=== PATIENT | female | born 1955 | race American Indian/Alaskan Native ===

== ENCOUNTER 2019-02-04 15:08 | Emergency (ER) | payer BC ==
--- NOTE | 2019-02-04 15:14 | EDM.PDOC ---
ED HPI GENERAL MEDICAL PROBLEM - General Stated Complaint: HEADACHE Time Seen by Provider: 02/04/19 15:11 Source of Information: Reports: Patient History Limitations: Reports: No Limitations - History of Present Illness INITIAL COMMENTS - FREE TEXT/NARRATIVE: HISTORY AND PHYSICAL: History of present illness: Patient is a 63-year-old female who presents to the emergency room with complaints of headache and nausea. She states approximately 2 hours prior to arrival she started to develop pain to her posterior scalp which now wraps around to the front and behind the left eye. She describes the pain around the left eye as pressure. Initially she told the triage nurse that this was a tingling sensation. After sitting down she states "well it's more like a pressure". She states "I just feel funny". Patient does have a history of hypertension, does take medication daily for this. She denies any weakness, slurred speech, or neurological deficits. She denies any recent head injury, trauma or falls. Patient denies any fever, chills, change in vision, syncope or near syncope. Denies any chest pain, back pain, shortness of breath or cough. Denies any abdominal pain, nausea, vomiting , diarrhea, constipation or dysuria. Has not noted any blood in urine or stool. Patient has been eating and drinking appropriately. Review of systems: As per history of present illness and below otherwise all systems reviewed and negative. Past medical history: As per history of present illness and as reviewed below otherwise noncontributory. Surgical history: As per history of present illness and as reviewed below otherwise noncontributory. Social history: See social history for further information Family history: As per history of present illness and as reviewed below otherwise noncontributory. Physical exam: General: Well-developed and well-nourished 63-year-old female. Alert and oriented. Nontoxic appearing and in no acute distress. HEENT: Atraumatic, normocephalic, pupils equal and reactive bilaterally, negative for conjunctival pallor or scleral icterus, mucous membranes moist, TMs normal bilaterally, throat clear, neck supple, nontender, trachea midline. No drooling or trismus noted. No meningeal signs. No hot potato voice noted. Lungs: Clear to auscultation, breath sounds equal bilaterally, chest nontender. Heart: S1S2, regular rate and rhythm without overt murmur Abdomen: Soft, nondistended, nontender. Skin: Intact, warm, dry. No lesions or rashes noted. Extremities: Atraumatic, moves all extremities per self without difficulty or deficits, negative for cords or calf pain. Neurovascular unremarkable. Neuro: Awake, alert, oriented. Cranial nerves II through XII unremarkable. Cerebellum unremarkable. Motor and sensory unremarkable throughout. Exam nonfocal. Notes: GCS 15, NIH 0. No deficits are noted. Repeat blood pressure is improved. She is agreeable to lab work and a head CT at this time. Lab work is unremarkable. Head CT shows no acute intracranial abnormalities. Patient states her symptoms have improved. Vital signs are stable. She does still have mild headache. I did offer her admission as we discussed migraine headache versus possibility of TIA. She refuses admission at this time. We discussed signs and symptoms that would prompt her to return to the emergency room. We discussed following up with primary care and/or neurology. Supportive care measures were reviewed and discussed. Voices understanding and is agreeable to plan of care. Denies any further questions or concerns at this time. Diagnostics: CBC, CMP, EKG, Head CT Therapeutics: IV fluids, Zofran, Toradol Prescription: None Impression: Migraine headache Plan: 1. Please take the remainder of the day to rest 2. Tylenol and/or ibuprofen as needed for pain management. 3. Follow-up with your primary care provider as we discussed. Return to the ED as needed and as discussed. Definitive disposition and diagnosis as appropriate pending reevaluation and review of above. Onset: Today Duration: Hour(s): Location: Reports: Head headache Pain Score (Numeric/FACES): 7 - Related Data Allergies Allergy/AdvReac Type Severity Reaction Status Date / Time blood pressure medications Allergy Cannot Uncoded 02/04/19 15:33 Remember Home Meds: Home Meds Blood Pressure Med 02/04/19 [History] Lisinopril 5 mg PO DAILY 02/04/19 [History] ED ROS GENERAL - Review of Systems Review Of Systems: ROS reveals no pertinent complaints other than HPI. - Physical Exam Exam: See Below (See dictation) Course - Vital Signs Last Recorded V/S: Last Vital Signs Temp 97.6 F 02/04/19 15:17 Pulse 87 02/04/19 15:17 Resp 18 02/04/19 15:17 BP 158/97 H 02/04/19 15:39 Pulse Ox 96 02/04/19 15:17 - Orders/Labs/Meds Orders: Active Orders 24 hr Category Date Time Status EKG Documentation Completion [RC] STAT Care 02/04/19 15:18 Active Head wo Cont [CT] Stat Exams 02/04/19 15:18 Taken Labs: Laboratory Tests 02/04/19 02/04/19 02/04/19 Range/Units 15:26 15:26 16:14 WBC 10.71 (4.0-11.0) K/uL RBC 4.88 (4.30-5.90) M/uL Hgb 16.0 (12.0-16.0) g/dL Hct 47.4 H (36.0-46.0) % MCV 97.1 (80.0-98.0) fL MCH 32.8 H (27.0-32.0) pg MCHC 33.8 (31.0-37.0) g/dL RDW Std Deviation 48.9 (28.0-62.0) fl RDW Coeff of Jonh 14 (11.0-15.0) % Plt Count 291 (150-400) K/uL MPV 10.20 (7.40-12.00) fL Neut % (Auto) 67.1 (48.0-80.0) % Lymph % (Auto) 23.5 (16.0-40.0) % Graves % (Auto) 7.1 (0.0-15.0) % Eos % (Auto) 1.7 (0.0-7.0) % Baso % (Auto) 0.6 (0.0-1.5) % Neut # (Auto) 7.2 H (1.4-5.7) K/uL Lymph # (Auto) 2.5 H (0.6-2.4) K/uL Graves # (Auto) 0.8 (0.0-0.8) K/uL Eos # (Auto) 0.2 (0.0-0.7) K/uL Baso # (Auto) 0.1 (0.0-0.1) K/uL Nucleated RBC % 0.0 /100WBC Nucleated RBCs # 0 K/uL Sodium 139 (136-145) mmol/L Potassium 4.0 (3.5-5.1) mmol/L Chloride 104 (98-107) mmol/L Carbon Dioxide 25.0 (21.0-32.0) mmol/L BUN 11 (7.0-18.0) mg/dL Creatinine 0.9 (0.6-1.0) mg/dL Est Cr Clr Drug Dosing 52.93 mL/min Estimated GFR (MDRD) > 60.0 ml/min Glucose 107 H (74-106) mg/dL Calcium 8.8 (8.5-10.1) mg/dL Total Bilirubin 0.3 (0.2-1.0) mg/dL AST 11 L (15-37) IU/L ALT 14 (14-63) IU/L Alkaline Phosphatase 109 (46-116) U/L Total Protein 8.6 H (6.4-8.2) g/dL Albumin 3.6 (3.4-5.0) g/dL Globulin 5.0 H (2.6-4.0) g/dL Albumin/Globulin Ratio 0.7 L (0.9-1.6) Urine Color YELLOW Urine Appearance CLEAR Urine pH 6.0 (5.0-8.0) Ur Specific [place] 1.010 (1.001-1.035) Urine Protein NEGATIVE (NEGATIVE) mg/dL Urine Glucose (UA) NEGATIVE (NEGATIVE) mg/dL Urine Ketones NEGATIVE (NEGATIVE) mg/dL Urine Occult Blood NEGATIVE (NEGATIVE) Urine Nitrite NEGATIVE (NEGATIVE) Urine Bilirubin NEGATIVE (NEGATIVE) Urine Urobilinogen 0.2 (<2.0) EU/dL Ur Leukocyte Esterase NEGATIVE (NEGATIVE) Meds: Medications Discontinued Medications Generic Name Dose Route Start Last Admin Trade Name Freq PRN Reason Stop Dose Admin Sodium Chloride 1,000 mls @ 999 mls/hr 02/04/19 15:18 02/04/19 15:32 Normal Saline IV 02/04/19 16:18 999 mls/hr STAT ONE Administration Ketorolac Tromethamine 30 mg 02/04/19 15:18 02/04/19 15:36 Toradol IVPUSH 02/04/19 15:19 30 mg ONETIME ONE Administration Ondansetron HCl 4 mg 02/04/19 15:18 02/04/19 15:34 Zofran IVPUSH 02/04/19 15:19 4 mg ONETIME ONE Administration Departure - Departure Time of Disposition: 17:09 Disposition: Home, Self-Care 01 Clinical Impression: Migraine headache without aura Qualifiers: Status migrainosus presence: without status migrainosus Intractability: not intractable Qualified Code(s): G43.009 - Migraine without aura, not intractable , without status migrainosus - Discharge Information Instructions: Migraine Headache, [id number] Referrals: PCP,None [Primary Care Provider] - Additional Instructions: The following information is given to patients seen in the emergency department who are being discharged to home. This information is to outline your options for follow-up care. We provide all patients seen in our emergency department with a follow-up referral. The need for follow-up, as well as the timing and circumstances, are variable depending upon the specifics of your emergency department visit. If you don't have a primary care physician on staff, we will provide you with a referral. We always advise you to contact your personal physician following an emergency department visit to inform them of the circumstance of the visit and for follow-up with them and/or the need for any referrals to a consulting specialist. The emergency department will also refer you to a specialist when appropriate. This referral assures that you have the opportunity for follow-up care with a specialist. All of these measure are taken in an effort to provide you with optimal care, which includes your follow-up. Under all circumstances we always encourage you to contact your private physician who remains a resource for coordinating your care. When calling for follow-up care, please make the office aware that this follow-up is from your recent emergency room visit. If for any reason you are refused follow-up, please contact the [facility] Emergency Department at and asked to speak to the emergency department charge nurse. [facility] Primary Care [address], [place] [address] [facility] Specialty Care - Neurology Professional Building [address] [place] [address], [address] [place] [address] 1. Please take the remainder of the day to rest 2. Tylenol and/or ibuprofen as needed for pain management. 3. Follow-up with your primary care provider or neurology as we discussed. Return to the ED as needed and as discussed. - My Orders Last 24 Hours: My Active Orders 02/04/19 15:18 EKG Documentation Completion [RC] STAT Head wo Cont [CT] Stat - Assessment/Plan Last 24 Hours: My Active Orders 02/04/19 15:18 EKG Documentation Completion [RC] STAT Head wo Cont [CT] Stat
[2019-02-04] MEDS ORDERED: Ketorolac 30 MG/ML SDV IVPUSH ONE (15:18)
[2019-02-04] MEDS ORDERED: Ondansetron 4 MG/2 ML SDV IVPUSH ONE (15:18)
[2019-02-04] MEDS ORDERED: Sodium Chloride 0.9% 1,000 ML IV ONE (15:18)
[2019-02-04 15:56] LABS: CHLORIDE,CL 104 mmol/L (98-107); SODIUM,NA 139 mmol/L (136-145)
--- NOTE | 2019-02-04 17:07 | CT ---
INDICATION: Headache. Pressure behind left eye. TECHNIQUE: Multiple axial images were obtained through the brain without contrast. Sagittal and coronal re-formatted images were obtained. COMPARISON: None. FINDINGS: The ventricles and sulci are within normal limits. There is no mass effect or midline shift. There is no intracranial hemorrhage. The lorenzana-white matter differentiation is unremarkable. There is no fracture identified on bone windows. IMPRESSION: No acute intracranial abnormality. Dictated by Owen Rob MD @ 02/04/2019 5:04:42 PM Please note that all CT scans at this facility use dose modulation, iterative reconstruction, and/or weight-based dosing when appropriate to reduce radiation dose to as low as reasonably achievable. Dictated by: Owen Rob MD @ 02/04/2019 17:06:17 (Electronically Signed)
[2019-02-04] MEDS ORDERED: cloNIDine 0.1 MG Tab PO ONE (17:35)
[2019-02-04] MEDS ORDERED: Lisinopril 5 MG Tab PO ONE (17:36)
== END 2019-02-04 18:16 | disposition home or self-care (01) ==
LOC: MW.ED 15:08
DX: G43.009 Migraine without aura, not intractable, without status migrainosus (principal); Z79.899 Other long term (current) drug therapy
CPT/HCPCS: 36415; 70450; 80053; 81003; 85025; 93005; 96361; 96374; 96375; 99284; A9270; J1885; J2405; J7040

== ENCOUNTER 2019-07-28 13:57 | Emergency (ER) | payer BC ==
--- NOTE | 2019-07-28 14:29 | EDM.PDOC ---
ED HPI GENERAL MEDICAL PROBLEM - General Chief Complaint: General Stated Complaint: LIGHT HEADED/PAIN IN LEGS Time Seen by Provider: 07/28/19 14:09 - History of Present Illness INITIAL COMMENTS - FREE TEXT/NARRATIVE: HISTORY AND PHYSICAL: History of present illness: Patient is 62-year-old female with history of hypertension and anxiety who presents with concern of generalized weakness she also has had a mild headache she states she was concerned about possible anxiety attack versus other more serious conditions she denies chest pain shortness breath nausea vomiting or other complaints. There's been no fever chills and her weakness has been somewhat generalized without any focal sensory or motor deficits Review of systems: As per history of present illness and below otherwise all systems reviewed and negative. Past medical history: As per history of present illness and as reviewed below otherwise noncontributory. Surgical history: As per history of present illness and as reviewed below otherwise noncontributory. Social history: No reported history of drug or alcohol abuse. Family history: As per history of present illness and as reviewed below otherwise noncontributory. Physical exam: HEENT: Atraumatic, normocephalic, pupils reactive, negative for conjunctival pallor or scleral icterus, mucous membranes moist, throat clear, neck supple, nontender, trachea midline. Lungs: Clear to auscultation, breath sounds equal bilaterally, chest nontender. Heart: S1S2, regular, negative for clicks, rubs, or JVD. Abdomen: Soft, nondistended, nontender. Negative for masses or hepatosplenomegaly. Negative for costovertebral tenderness. Pelvis: Stable nontender. Genitourinary: Deferred. Rectal: Deferred. Extremities: Atraumatic, negative for cords or calf pain. Neurovascular unremarkable. Neuro: Awake, alert, oriented. Cranial nerves II through XII unremarkable. Cerebellum unremarkable. Motor and sensory unremarkable throughout. Exam nonfocal. Diagnostics: CBC CMP troponin PT/INR chest x-ray EKG CT brain Therapeutics: None Impression: #1 generalized weakness #2 history of hypertension #3 history of anxiety number for medical screening exam Definitive disposition and diagnosis as appropriate pending reevaluation and review of above. Headache Pain Score (Numeric/FACES): 3 - Related Data Allergies Allergy/AdvReac Type Severity Reaction Status Date / Time blood pressure medications Allergy Cannot Uncoded 07/28/19 14:15 Remember Home Meds: Home Meds Lisinopril 40 mg PO DAILY 02/04/19 [History] Furosemide [Lasix] 20 mg PO DAILY 07/28/19 [History] Metoprolol Tartrate 25 mg PO DAILY 07/28/19 [History] Past Medical History Cardiovascular History: Reports: CAD, Hypertension Genitourinary History: Reports: None [employer] History: Reports: - Infectious Disease History Infectious Disease History: Reports: Chicken Pox, Mumps - Past Surgical History Cardiovascular Surgical History: Reports: None Female Surgical History: Reports: Hysterectomy Social & Family History - Family History Family Medical History: Noncontributory - Tobacco Use Smoking Status *Q: Current Every Day Smoker Years of Tobacco use: 40 Packs/Tins Daily: 1 - Caffeine Use Caffeine Use: Reports: Coffee - Recreational Drug Use Recreational Drug Use: No ED ROS GENERAL - Review of Systems Review Of Systems: Comprehensive ROS is negative, except as noted in HPI. ED EXAM, GENERAL - Physical Exam Exam: See Below (Dictation) Course - Vital Signs Text/Narrative:: Discussed diagnostics with patient ED course has been unremarkable on admission for observation patient declines requests follow-up with private medical doctor Last Recorded V/S: Last Vital Signs Temp 36.6 C 07/28/19 14:17 Pulse 75 07/28/19 14:17 Resp 18 07/28/19 14:17 BP 143/90 H 07/28/19 14:17 Pulse Ox 97 07/28/19 14:17 - Orders/Labs/Meds Orders: Active Orders 24 hr Category Date Time Status EKG Documentation Completion [RC] STAT Care 07/28/19 14:27 Active Labs: Laboratory Tests 07/28/19 07/28/19 07/28/19 Range/Units 14:44 14:44 14:44 WBC 10.63 (4.0-11.0) K/uL RBC 4.60 (4.30-5.90) M/uL Hgb 15.1 (12.0-16.0) g/dL Hct 44.3 (36.0-46.0) % MCV 96.3 (80.0-98.0) fL MCH 32.8 H (27.0-32.0) pg MCHC 34.1 (31.0-37.0) g/dL RDW Std Deviation 50.0 (28.0-62.0) fl RDW Coeff of John 14 (11.0-15.0) % Plt Count 272 (150-400) K/uL MPV 10.40 (7.40-12.00) fL Neut % (Auto) 69.3 (48.0-80.0) % Lymph % (Auto) 22.2 (16.0-40.0) % [place] % (Auto) 6.6 (0.0-15.0) % Eos % (Auto) 1.2 (0.0-7.0) % Baso % (Auto) 0.7 (0.0-1.5) % Neut # (Auto) 7.4 H (1.4-5.7) K/uL Lymph # (Auto) 2.4 (0.6-2.4) K/uL [place] # (Auto) 0.7 (0.0-0.8) K/uL Eos # (Auto) 0.1 (0.0-0.7) K/uL Baso # (Auto) 0.1 (0.0-0.1) K/uL Nucleated RBC % 0.0 /100WBC Nucleated RBCs # 0 K/uL INR 1.03 Sodium 139 (136-145) mmol/L Potassium 3.7 (3.5-5.1) mmol/L Chloride 105 (98-107) mmol/L Carbon Dioxide 26.7 (21.0-32.0) mmol/L BUN 10 (7.0-18.0) mg/dL Creatinine 0.9 (0.6-1.0) mg/dL Est Cr Clr Drug Dosing 52.93 mL/min Estimated GFR (MDRD) > 60.0 ml/min Glucose 103 (74-106) mg/dL Calcium 8.7 (8.5-10.1) mg/dL Total Bilirubin 0.3 (0.2-1.0) mg/dL AST 15 (15-37) IU/L ALT 16 (14-63) IU/L Alkaline Phosphatase 102 (46-116) U/L Troponin I < 0.050 (0.000-0.056) ng/mL Total Protein 8.2 (6.4-8.2) g/dL Albumin 3.3 L (3.4-5.0) g/dL Globulin 4.9 H (2.6-4.0) g/dL Albumin/Globulin Ratio 0.7 L (0.9-1.6) Urine Color Urine Appearance Urine pH (5.0-8.0) Ur Specific [place] (1.001-1.035) Urine Protein (NEGATIVE) mg/dL Urine Glucose (UA) (NEGATIVE) mg/dL Urine Ketones (NEGATIVE) mg/dL Urine Occult Blood (NEGATIVE) Urine Nitrite (NEGATIVE) Urine Bilirubin (NEGATIVE) Urine Urobilinogen (<2.0) EU/dL Ur Leukocyte Esterase (NEGATIVE) 07/28/19 Range/Units 15:20 WBC (4.0-11.0) K/uL RBC (4.30-5.90) M/uL Hgb (12.0-16.0) g/dL Hct (36.0-46.0) % MCV (80.0-98.0) fL MCH (27.0-32.0) pg MCHC (31.0-37.0) g/dL RDW Std Deviation (28.0-62.0) fl RDW Coeff of John (11.0-15.0) % Plt Count (150-400) K/uL MPV (7.40-12.00) fL Neut % (Auto) (48.0-80.0) % Lymph % (Auto) (16.0-40.0) % [place] % (Auto) (0.0-15.0) % Eos % (Auto) (0.0-7.0) % Baso % (Auto) (0.0-1.5) % Neut # (Auto) (1.4-5.7) K/uL Lymph # (Auto) (0.6-2.4) K/uL [place] # (Auto) (0.0-0.8) K/uL Eos # (Auto) (0.0-0.7) K/uL Baso # (Auto) (0.0-0.1) K/uL Nucleated RBC % /100WBC Nucleated RBCs # K/uL INR Sodium (136-145) mmol/L Potassium (3.5-5.1) mmol/L Chloride (98-107) mmol/L Carbon Dioxide (21.0-32.0) mmol/L BUN (7.0-18.0) mg/dL Creatinine (0.6-1.0) mg/dL Est Cr Clr Drug Dosing mL/min Estimated GFR (MDRD) ml/min Glucose (74-106) mg/dL Calcium (8.5-10.1) mg/dL Total Bilirubin (0.2-1.0) mg/dL AST (15-37) IU/L ALT (14-63) IU/L Alkaline Phosphatase (46-116) U/L Troponin I (0.000-0.056) ng/mL Total Protein (6.4-8.2) g/dL Albumin (3.4-5.0) g/dL Globulin (2.6-4.0) g/dL Albumin/Globulin Ratio (0.9-1.6) Urine Color YELLOW Urine Appearance CLEAR Urine pH 7.0 (5.0-8.0) Ur Specific [place] 1.010 (1.001-1.035) Urine Protein NEGATIVE (NEGATIVE) mg/dL Urine Glucose (UA) NEGATIVE (NEGATIVE) mg/dL Urine Ketones NEGATIVE (NEGATIVE) mg/dL Urine Occult Blood NEGATIVE (NEGATIVE) Urine Nitrite NEGATIVE (NEGATIVE) Urine Bilirubin NEGATIVE (NEGATIVE) Urine Urobilinogen 1.0 (<2.0) EU/dL Ur Leukocyte Esterase NEGATIVE (NEGATIVE) Departure - Departure Time of Disposition: 15:41 Disposition: Home, Self-Care 01 Condition: Good Clinical Impression: Encounter for medical screening examination, Generalized weakness, Anxiety - Discharge Information Referrals: Foster Waller [Primary Care Provider] - Forms: ED Department Discharge - My Orders Last 24 Hours: My Active Orders 07/28/19 14:27 EKG Documentation Completion [RC] STAT - Assessment/Plan Last 24 Hours: My Active Orders 07/28/19 14:27 EKG Documentation Completion [RC] STAT
--- NOTE | 2019-07-28 15:12 | CT ---
Head CT Technique: Multiple axial sections through the brain were obtained. Intravenous contrast was not utilized. Comparison: Prior head CT study of 02/04/19. Findings: Ventricles along with basal cisterns and sulci the convexities are mildly prominent. No abnormal parenchymal densities are seen. No evidence of intracranial hemorrhage. No midline shift or mass effect is seen. Mild mucosal thickening is noted within the right maxillary sinus. Mastoid sinuses are clear. No acute calvarial abnormality is appreciated. Impression: 1. Mucosal thickening within the right maxillary sinus. This is most likely chronic. 2. No acute intracranial abnormality is appreciated. Diagnostic code #2 MTDD
[2019-07-28 15:16] LABS: BLOOD UREA NITROGEN,BUN 10 mg/dL (7.0-18.0); CARBON DIOXIDE,CO2 26.7 mmol/L (21.0-32.0); CHLORIDE,CL 105 mmol/L (98-107); GLUCOSE RANDOM 103 mg/dL (74-106); POTASSIUM,K 3.7 mmol/L (3.5-5.1); SODIUM,NA 139 mmol/L (136-145)
--- NOTE | 2019-07-28 15:32 | CR ---
Chest: PA view of the chest was obtained. Comparison: No prior chest x-ray. Heart size and mediastinum are within normal limits. Lungs are clear with no acute parenchymal change. Bony structures are grossly intact. Impression: Nothing acute is seen on frontal chest x-ray. Diagnostic code #1 MTDD
== END 2019-07-28 15:56 | disposition home or self-care (01) ==
LOC: MW.ED 13:57
DX: Z13.89 Encounter for screening for other disorder (principal); R53.1 Weakness; F41.9 Anxiety disorder, unspecified; I25.10 Atherosclerotic heart disease of native coronary artery without angina pectoris; I10 Essential (primary) hypertension; F17.210 Nicotine dependence, cigarettes, uncomplicated; Z79.899 Other long term (current) drug therapy; Z88.8 Allergy status to other drugs, medicaments and biological substances
CPT/HCPCS: 36415; 70450; 70450-26; 71045; 71045-26; 80053; 81003; 84484; 85025; 85610; 93005; 99282; 99285-25

== ENCOUNTER 2020-11-06 12:59 | Emergency (ER) | payer BC, MEDICARE ==
--- NOTE | 2020-11-06 13:50 | EDM.PDOC ---
ED HPI GENERAL MEDICAL PROBLEM - General Chief Complaint: Respiratory Problem Stated Complaint: RECENT COVID, CHEST PAIN, Time Seen by Provider: 11/06/20 13:23 Source of Information: Reports: Patient History Limitations: Reports: No Limitations - History of Present Illness INITIAL COMMENTS - FREE TEXT/NARRATIVE: 64-year-old female with history of hypertension and tobacco use presents with shortness of breath, cough with greenish sputum since yesterday, generalized malaise, nausea, chills, headache. She was tested positive for Covid on 10/17. She denies chest pain or chest discomfort, fever, vomiting, diarrhea, abdominal pain. ROS: A 10-point review of systems, other than pertinent positives and negatives as stated per HPI, is otherwise negative Past medical history: No additional pertinent history Past Surgical history: No additional pertinent history Social history: No additional pertinent history Family history: No additional pertinent history PHYSICAL EXAM General: AOx4, GCS = 15, No distress HEENT: dry mucous membrane Neck: supple, no meningismus, no Kernig or Brudzinski Cardiac: S1S2 RRR Respiratory: CTAB, no crackles or rales, no wheezing Abdomen: Soft, nontender, no rebound or guarding, nondistended, no pulsatile mass. Back: nontender Musculoskeletal: NVI distally, no deformity Neuro: No focal deficits, CN 2 - 12 WNL. pleuritc Pain Score (Numeric/FACES): 5 - Related Data Allergies Allergy/AdvReac Type Severity Reaction Status Date / Time blood pressure medications Allergy Cannot Uncoded 07/28/19 14:15 Remember Home Meds: Home Meds Lisinopril 40 mg PO DAILY 02/04/19 [History] Furosemide [Lasix] 20 mg PO DAILY 07/28/19 [History] Metoprolol Tartrate 25 mg PO DAILY 07/28/19 [History] predniSONE [Prednisone] 50 mg PO DAILY #5 tablet 11/06/20 [Rx] Past Medical History Cardiovascular History: Reports: CAD, Hypertension Genitourinary History: Reports: None [employer] History: Reports: Psychiatric History: Reports: Anxiety Endocrine/Metabolic History: Reports: Hypothyroidism - Infectious Disease History Infectious Disease History: Reports: Chicken Pox, Mumps, Novel Coronavirus - Past Surgical History Cardiovascular Surgical History: Reports: None Female Surgical History: Reports: Hysterectomy Social & Family History - Family History Family Medical History: No Pertinent Family History - Tobacco Use Packs/Tins Daily: 1 - Caffeine Use Caffeine Use: Reports: None - Recreational Drug Use Recreational Drug Use: No ED ROS GENERAL - Review of Systems Review Of Systems: See Below (see dictation) ED EXAM, GENERAL - Physical Exam Exam: See Below (see dictation) #1 Interpretation EKG Interpretation Comments: Heart rate = 68 bpm, normal sinus rhythm, normal QRS interval, no STEMI. EKG and rhythm strip interpreted by me at 1308 Course - Vital Signs Last Recorded V/S: Last Vital Signs Temp 97.8 F 11/06/20 13:01 Pulse 68 11/06/20 13:01 Resp 16 11/06/20 13:01 BP 127/78 11/06/20 13:01 Pulse Ox 93 L 11/06/20 13:01 - Orders/Labs/Meds Orders: Active Orders 24 hr Category Date Time Status EKG 12 Lead [EKG Documentation Completion] [RC] STAT Care 11/06/20 13:24 Active RT Aerosol Therapy [RC] ASDIRECTED Care 11/06/20 13:53 Active Meds: Medications Discontinued Medications Generic Name Dose Route Start Last Admin Trade Name Freq PRN Reason Stop Dose Admin Albuterol/Ipratropium 3 ml 11/06/20 13:53 11/06/20 14:24 Duoneb 3.0-0.5 Mg/3 Ml NEB 11/06/20 13:54 3 ml ONETIME ONE Administration - Re-Assessments/Exams Free Text/Narrative Re-Assessment/Exam: 11/06/20 15:01 After DuoNeb treatment, she feels much improved and she is currently stable for discharge. I performed a repeat exam and did not appreciate new abnormal findings. Patient exhibits normal vital signs and has a normal gait on road t est. I advised the patient to return to the ER for reevaluation if symptoms worsened, including fever, worsening pain, or any other worrisome symptoms. I instructed the patient to follow up with their PCP within 2-3 days. MEDICAL DECISION MAKING: I reviewed the patients past medical records, lab and radiographic findings. I discussed the case with the patient. My differential diagnosis included: Covid, pneumonia, COPD. Patient is a daily smoker, she smoked today and smelled of tobacco. Her lungs are clear to auscultation bilaterally, pulse ox 96% on room air in no respiratory distress, no retractions. I do not suspect need for hospitalization or additional imaging studies. I do not suspect pulmonary embolism. Chest x-ray did not demonstrate infiltrate or pneumonia. I encouraged her to stop smoking. Departure - Departure Time of Disposition: 15:03 Disposition: Home, Self-Care 01 Condition: Good Clinical Impression: Tobacco abuse, Cough - Discharge Information *PRESCRIPTION DRUG MONITORING PROGRAM REVIEWED*: Not Applicable *COPY OF PRESCRIPTION DRUG MONITORING REPORT IN PATIENT DEMARCO: Not Applicable Prescriptions: predniSONE [Prednisone] 50 mg PO DAILY #5 tablet Instructions: Shortness of Breath, Adult, [id number], Smoking Tobacco Information, Adult Referrals: PCP,Not In Area [Primary Care Provider] - 3 Days Forms: ED Department Discharge Additional Instructions: The need for follow-up, as well as the timing and circumstances, are variable depending upon the specifics of your emergency department visit. If you don't have a primary care physician on staff, we will provide you with a referral. We always advise you to contact your personal physician following an emergency department visit to inform them of the circumstance of the visit and for follow-up with them and/or the need for any referrals to a consulting specialist. The emergency department will also refer you to a specialist when appropriate. This referral assures that you have the opportunity for follow-up care with a specialist. All of these measure are taken in an effort to provide you with optimal care, which includes your follow-up. Under all circumstances we always encourage you to contact your private physician who remains a resource for coordinating your care. When calling for follow-up care, please make the office aware that this follow-up is from your recent emergency room visit. If for any reason you are refused follow-up, please contact the [facility] Emergency Department at and asked to speak to the emergency department charge nurse. If you do not have a primary care doctor, please follow up with the clinics below within 3-5 days. [facility] [address] [address] [facility] [address] [place] [id number] Sepsis Event Note (ED) - Evaluation Sepsis Screening Result: No Definite Risk - Focused Exam Vital Signs: Vital Signs Temp Pulse Resp BP Pulse Ox 11/06/20 13:01 97.8 F 68 16 127/78 93 L - My Orders Last 24 Hours: My Active Orders 11/06/20 13:24 EKG 12 Lead [EKG Documentation Completion] [RC] STAT 11/06/20 13:53 RT Aerosol Therapy [RC] ASDIRECTED - Assessment/Plan Last 24 Hours: My Active Orders 11/06/20 13:24 EKG 12 Lead [EKG Documentation Completion] [RC] STAT 11/06/20 13:53 RT Aerosol Therapy [RC] ASDIRECTED
[2020-11-06] MEDS ORDERED: Albuterol/Ipratropium 3.0-0.5 MG/3 ML Neb Soln NEB ONE (13:53)
--- NOTE | 2020-11-06 14:48 | CR ---
INDICATION: CHEST PAIN TECHNIQUE: Chest 1 view. 07/28/19 FINDINGS: Cardiovascular and mediastinum: Heart size and vasculature are normal in caliber and appearance. Mediastinum is within normal limits. Lungs and pleural space: Lungs are clear. No sign of infiltrate or mass. No sign of pleural effusion. No pneumothorax. Bones and soft tissues: No significant findings. IMPRESSION: Unremarkable chest. Dictated by: Valentin De Anda MD @ 11/06/2020 14:46:48 (Electronically Signed)
== END 2020-11-06 15:18 | disposition home or self-care (01) ==
LOC: MW.ED 12:59
DX: R05 Cough (principal); F17.200 Nicotine dependence, unspecified, uncomplicated; I10 Essential (primary) hypertension; I25.10 Atherosclerotic heart disease of native coronary artery without angina pectoris; Z88.8 Allergy status to other drugs, medicaments and biological substances; Z79.899 Other long term (current) drug therapy
CPT/HCPCS: 71045; 71045-26; 93005; 93010; 94640; 99283; 99285-25; J7620-GY